=== PATIENT | male | born 1955 | race American Indian/Alaskan Native ===

== ENCOUNTER 2017-06-20 11:27 | Outpatient (CLI) | payer BC ==
[2017-06-20 11:44] LABS: Hematocrit 49.7 % (35.5-45.6); Hemoglobin 16.7 gm/dl (11.8-15.2); Mean Corpuscular HGB Conc 34 % (32-34); Mean Corpuscular Hemoglobin 29 pg (28-32); Mean Corpuscular Volume 88 fl (84-94); Platelet Count 172 K/mm3 (140-440); Red Blood Count 5.68 M/mm3 (3.65-5.03); Red Cell Distribution Width 14.7 % (13.2-15.2)
[2017-06-20 11:59] LABS: INR 0.91 (0.87-1.13); Partial Thromboplastin Time 31.7 Sec. (24.2-36.6)
[2017-06-20 12:11] LABS: Alanine Aminotransferase 16 units/L (7-56); Albumin 3.8 g/dL (3.9-5); BUN/Creatinine Ratio 13; Blood Urea Nitrogen 12 mg/dL (9-20); Calcium 9.1 mg/dL (8.4-10.2); Hemolysis Index 14
--- NOTE | 2017-06-20 12:54 | XRay Report ---
CHEST 2 VIEWS INDICATION: Cough. COMPARISON: 08/29/2014 FINDINGS: PA and lateral chest radiographs again demonstrate normal cardiomediastinal silhouette and bones. Clear, hyperexpanded lungs. CONCLUSION: Possible COPD without acute chest process. Thank you for the opportunity to participate in this patient's care.
== END 2017-06-20 11:28 | disposition home or self-care (01) ==
LOC: CARD 11:27
PROVIDERS: ATTEND Internal Medicine
DX: R07.9 Chest pain, unspecified (principal); R53.83 Other fatigue; R79.1 Abnormal coagulation profile
CPT/HCPCS: 36415; 71046; 80053; 85027; 85610; 85730; 93005; 93010

== ENCOUNTER 2017-11-11 03:54 | Emergency (ER) | payer SELFPAY ==
[2017-11-11 04:01] VITALS: BP 169/79
[2017-11-11] MEDS ORDERED: DELTASONE PO ONE (04:53)
[2017-11-11] MEDS ORDERED: PROVENTIL IH ONE (04:53)
[2017-11-11] MEDS ORDERED: ZITHROMAX PO ONE (04:54)
[2017-11-11] MEDS ORDERED: TYLENOL #3 PO ONE (04:54)
--- NOTE | 2017-11-11 05:13 | XRay Report ---
FINAL REPORT EXAM: XR CHEST ROUTINE 2V HISTORY: cough and congestion TECHNIQUE: PA and lateral views of the chest were submitted. FINDINGS: The lungs are hyperinflated. The heart size and vascularity appear normal. There are increased markings in both lung bases. Mild infiltrates cannot be excluded. Pleural fluid is not seen. The skeletal structures reveal mild disc degeneration in the dorsal spine. IMPRESSION: COPD. Increased markings in both lung bases. Mild pneumonic infiltrates cannot be excluded. No evidence of congestion.
--- NOTE | 2017-11-11 05:14 | Emergency Department Report ---
Upper Respiratory HPI - HPI Chief Complaint: Upper Respiratory Infection Stated Complaint: COLD/BODY ACHE Time Seen by Provider: 11/11/17 04:52 Duration: 5 Days URI Symptoms: Rhinorrhea: Yes, Sore Throat: No, Ear Pain: No, Cough: Yes, Shortness of Breath: Yes, Unable to Take Fluids: No, Urine Output Abnormal: No, Listless Behavior: No Other History: Patient is 62-year-old -[place] male with a history of asthma and bronchitis stays out of medications presents with cough and wheeze for the past 5 days patient denies fever no sore throat or ear pain no nausea vomiting or chest pain - Home Meds and Allergies Home Medications: Previous Rx's Medication Instructions Recorded Last Taken Type HYDROcodone/APAP 10-325 [[place] 1 each PO Q8HR PRN #20 tablet 08/29/14 Unknown Rx 10/325] Ondansetron [Zofran Odt] 8 mg PO TID PRN #10 tab.rapdis 08/29/14 Unknown Rx Acetaminophen/Codeine [Tylenol #3] 1 tab PO Q6H PRN #20 tab 06/14/15 Unknown Rx Sulfamethoxazole/Trimethoprim 1 each PO BID #20 tablet 06/14/15 Unknown Rx [Bactrim DS TAB] ALBUTEROL Inhaler(NF) [VENTOLIN 1 puff IH QID PRN #1 inha 11/11/17 Unknown Rx Inhaler(NF)] ALBUTEROL NEB's [Proventil 0.083% 2.5 mg IH QID PRN #25 vial 11/11/17 Unknown Rx NEBS] Acetaminophen [Tylenol] 975 mg PO QID PRN #60 capsule 11/11/17 Unknown Rx Azithromycin 250 mg PO DAILY #4 tablet 11/11/17 Unknown Rx Codeine Phosphate/Guaifenesin 5 ml PO TID PRN #120 ml 11/11/17 Unknown Rx [Guaifenesin-Codeine Syrup] Nebulizer Accessories [Sootheneb 1 each MC PRN PRN #1 each 11/11/17 Unknown Rx [id number] Adult Mask] Nebulizer [Aeroneb Go Nebulizer] 1 each MC PRN PRN #1 each 11/11/17 Unknown Rx predniSONE [Deltasone] 40 mg PO QDAY 5 Days #10 tab 11/11/17 Unknown Rx Allergies/Adverse Reactions: Allergies Allergy/AdvReac Type Severity Reaction Status Date / Time No Known Allergies Allergy Unverified 08/28/14 23:10 ED Review of Systems ROS: Stated complaint: COLD/BODY ACHE Other details as noted in HPI Constitutional: denies: chills, fever Eyes: denies: eye pain, eye discharge, vision change ENT: as per HPI, congestion Respiratory: cough, shortness of breath, wheezing Cardiovascular: denies: chest pain, palpitations Endocrine: no symptoms reported Gastrointestinal: denies: abdominal pain, nausea, diarrhea Genitourinary: denies: urgency, dysuria Musculoskeletal: denies: back pain, joint swelling, arthralgia Skin: denies: rash, lesions Neurological: denies: headache, weakness, paresthesias Psychiatric: denies: anxiety, depression Hematological/Lymphatic: denies: easy bleeding, easy bruising ED Past Medical Hx - Past Medical History Additional medical history: Hemorrhoids - Surgical History Additional Surgical History: R wrist surgery - Social History Smoking Status: Current Every Day Smoker Substance Use Type: None - Medications Home Medications: Home Medications Medication Instructions Recorded Confirmed Last Taken Type HYDROcodone/APAP 10-325 [[place] 1 each PO Q8HR PRN #20 tablet 08/29/14 Unknown Rx 10/325] Ondansetron [Zofran Odt] 8 mg PO TID PRN #10 tab.rapdis 08/29/14 Unknown Rx Acetaminophen/Codeine [Tylenol #3] 1 tab PO Q6H PRN #20 tab 06/14/15 Unknown Rx Sulfamethoxazole/Trimethoprim 1 each PO BID #20 tablet 06/14/15 Unknown Rx [Bactrim DS TAB] ALBUTEROL Inhaler(NF) [VENTOLIN 1 puff IH QID PRN #1 inha 11/11/17 Unknown Rx Inhaler(NF)] ALBUTEROL NEB's [Proventil 0.083% 2.5 mg IH QID PRN #25 vial 11/11/17 Unknown Rx NEBS] Acetaminophen [Tylenol] 975 mg PO QID PRN #60 capsule 11/11/17 Unknown Rx Azithromycin 250 mg PO DAILY #4 tablet 11/11/17 Unknown Rx Codeine Phosphate/Guaifenesin 5 ml PO TID PRN #120 ml 11/11/17 Unknown Rx [Guaifenesin-Codeine Syrup] Nebulizer Accessories [Sootheneb 1 each MC PRN PRN #1 each 11/11/17 Unknown Rx [id number] Adult Mask] Nebulizer [Aeroneb Go Nebulizer] 1 each MC PRN PRN #1 each 11/11/17 Unknown Rx predniSONE [Deltasone] 40 mg PO QDAY 5 Days #10 tab 11/11/17 Unknown Rx ED Bronchiolitis Physical Exam - Exam General: Vital signs noted. No distress. Alert and acting appropriately. HEENT: Yes Pharyngeal Erythema, Yes Rhinorrhea, No Conjuctival Injection, No Dry Mucous Membranes Ear: Neither TM Bulge, Neither TM Erythema, Neither EAC Discharge Neck: No Adenopathy, No Rigidity Lungs: Yes Good Air Exchange, Yes Wheezes, Yes Cough, No Clear Lung Sounds, No Stridor, No Nasal Flaring, No Retractions, No Use of Accessory Muscles Heart: Yes Regular, No Murmur Abdomen: Yes Normal Bowel Sounds, No Tenderness, No Peritoneal Signs Skin: No Rash, No Eczema Neurologic: Alert and oriented, no deficits. Musculoskeletal: Unremarkable. ED Bronchiolitis Tests - Testing Testing: CXR: Normal/Negative (no infiltrates no opacities) Treatments - Treaments Treatment: Improved Albuterol (prednisone ) ED Physical Exam - General Limitations: No Limitations General appearance: alert, in no apparent distress - Head Head exam: Present: atraumatic, normocephalic - Eye Eye exam: Present: normal appearance - ENT ENT exam: Present: normal orophraynx, mucous membranes moist, TM's normal bilaterally, normal external ear exam - Expanded ENT Exam Expanded Throat exam: Positive: tonsillar erythema, tonsillomegaly. Negative: tonsillar exudate, R peritonsillar mass, L peritonsillar mass - Neck Neck exam: Present: normal inspection, full ROM. Absent: tenderness, meningismus, lymphadenopathy, thyromegaly - Respiratory Respiratory exam: Present: wheezes. Absent: respiratory distress, stridor, chest wall tenderness - Cardiovascular Cardiovascular Exam: Present: regular rate, normal rhythm, normal heart sounds. Absent: systolic murmur, diastolic murmur, rubs, gallop - GI/Abdominal GI/Abdominal exam: Present: soft, normal bowel sounds - Rectal Rectal exam: Present: deferred - Extremities Exam Extremities exam: Present: normal inspection - Back Exam Back exam: Present: normal inspection - Neurological Exam Neurological exam: Present: alert, oriented X3 - Psychiatric Psychiatric exam: Present: normal affect - Skin Skin exam: Present: warm, dry, intact, normal color. Absent: rash ED Course Vital Signs 11/11/17 03:59 Temperature 98.8 F Pulse Rate 76 Respiratory 18 Rate Blood Pressure 169/79 O2 Sat by Pulse 97 Oximetry ED Medical Decision Making - Radiology Data Radiology results: report reviewed, image reviewed Chest x-ray normal no opacities no infiltrates - Medical Decision Making Physical bronchitis versus asthma exacerbation breathing improved with prednisone with urology within ED patient given a Zithromax and Tylenol 3 for control of cough as he cannot get antibiotics until tomorrow refilled albuterol nebs and prednisone 5 days patient will follow was also [facility] or return to ED should symptoms worsen patient verbalizes agreement and understanding same will be DC'd in stable condition , patient is now ambulatory in ED without shortness of breath Critical care attestation.: If time is entered above; I have spent that time in minutes in the direct care of this critically ill patient, excluding procedure time. ED Disposition Clinical Impression: Bronchitis Disposition: DC-01 TO HOME OR SELFCARE Is pt being admited?: No Does the pt Need Aspirin: No Condition: Good Instructions: Chronic Bronchitis (ED) Prescriptions: Acetaminophen [Tylenol] 975 mg PO QID PRN #60 capsule PRN Reason: pain fever ALBUTEROL Inhaler(NF) [VENTOLIN Inhaler(NF)] 1 puff IH QID PRN #1 inha PRN Reason: wheezing sob ALBUTEROL NEB's [Proventil 0.083% NEBS] 2.5 mg IH QID PRN #25 vial PRN Reason: sob wheezing Azithromycin 250 mg PO DAILY #4 tablet Codeine Phosphate/Guaifenesin [Guaifenesin-Codeine Syrup] 5 ml PO TID PRN #120 ml PRN Reason: cough Nebulizer [Aeroneb Go Nebulizer] 1 each MC PRN PRN #1 each PRN Reason: sob wheezing Nebulizer Accessories [Sootheneb [id number] Adult Mask] 1 each MC PRN PRN #1 each PRN Reason: sob wheezing predniSONE [Deltasone] 40 mg PO QDAY 5 Days #10 tab Referrals: [facility] [Outside] - 3-5 Days Forms: Work/School Release Form(ED) Time of Disposition: :19
== END 2017-11-11 06:30 | disposition home or self-care (01) ==
LOC: ED 03:54
DX: J40 Bronchitis, not specified as acute or chronic (principal); F17.200 Nicotine dependence, unspecified, uncomplicated
CPT/HCPCS: 71046; 94640; 99283; J7512

== ENCOUNTER 2018-06-02 09:58 | Emergency (ER) | payer SELFPAY ==
--- NOTE | 2018-06-02 12:36 | Emergency Department Report ---
ED General Adult HPI - General Chief complaint: Rectal Pain Stated complaint: HEMORRHOID/PAIN Time Seen by Provider: 06/02/18 12:28 Source: patient Mode of arrival: Ambulatory Limitations: No Limitations - History of Present Illness Initial comments: This is a 62-year-old male presents with rectal pain since yesterday. Patient reports a history of thrombosed hemorrhoids and had them excised in the emergency room before. Patient states he attempt to work but could not tolerate sitting or movement. He is taking NSAIDs for pain. He denies signs of abdominal pain, diarrhea, nausea or vomiting. Onset/Timin -: days(s) Location: buttocks (rectal pain) Radiation: non-radiation Severity scale (0 -10): 9 Quality: stabbing, constant Consistency: constant Improves with: none Worsens with: other (sitting and walking) Associated Symptoms: denies other symptoms Treatments Prior to Arrival: NSAID - Related Data Previous Rx's Medication Instructions Recorded Last Taken Type HYDROcodone/APAP 10-325 [[place] 1 each PO Q8HR PRN #20 tablet 08/29/14 Unknown Rx 10/325] Ondansetron [Zofran Odt] 8 mg PO TID PRN #10 tab.rapdis 08/29/14 Unknown Rx Acetaminophen/Codeine [Tylenol #3] 1 tab PO Q6H PRN #20 tab 06/14/15 Unknown Rx Sulfamethoxazole/Trimethoprim 1 each PO BID #20 tablet 06/14/15 Unknown Rx [Bactrim DS TAB] ALBUTEROL Inhaler(NF) [VENTOLIN 1 puff IH QID PRN #1 inha 11/11/17 Unknown Rx Inhaler(NF)] ALBUTEROL NEB's [Proventil 0.083% 2.5 mg IH QID PRN #25 vial 11/11/17 Unknown Rx NEBS] Acetaminophen [Tylenol] 975 mg PO QID PRN #60 capsule 11/11/17 Unknown Rx Azithromycin 250 mg PO DAILY #4 tablet 11/11/17 Unknown Rx Codeine Phosphate/Guaifenesin 5 ml PO TID PRN #120 ml 11/11/17 Unknown Rx [Guaifenesin-Codeine Syrup] Nebulizer Accessories [Sootheneb 1 each MC PRN PRN #1 each 11/11/17 Unknown Rx [id number] Adult Mask] Nebulizer [Aeroneb Go Nebulizer] 1 each MC PRN PRN #1 each 11/11/17 Unknown Rx predniSONE [Deltasone] 40 mg PO QDAY 5 Days #10 tab 11/11/17 Unknown Rx Acetaminophen/Codeine [Tylenol 1 tab PO Q4HR PRN #12 tablet 06/02/18 Unknown Rx /Codeine # 3 tab] Hydrocort/Pramoxine [Proctofoam-Hc] 10 gm SD Q2H PRN #1 can 06/02/18 Unknown Rx Hydrocortisone [Anusol-Hc] 30 gm RC BID #1 cream..g. 06/02/18 Unknown Rx Allergies Allergy/AdvReac Type Severity Reaction Status Date / Time No Known Allergies Allergy Unverified 08/28/14 23:10 ED Review of Systems ROS: Stated complaint: HEMORRHOID/PAIN Other details as noted in HPI Constitutional: denies: chills, fever Respiratory: denies: cough, shortness of breath, wheezing Cardiovascular: denies: chest pain, palpitations Gastrointestinal: other (rectal pain). denies: abdominal pain, nausea, diarrhea Genitourinary: denies: urgency, dysuria Skin: denies: rash, lesions Neurological: denies: headache, weakness, paresthesias Psychiatric: denies: anxiety, depression ED Past Medical Hx - Past Medical History Previous Medical History?: Yes Additional medical history: Hemorrhoids - Surgical History Past Surgical History?: Yes Additional Surgical History: R wrist surgery - Social History Smoking Status: Current Every Day Smoker Substance Use Type: None - Medications Home Medications: Home Medications Medication Instructions Recorded Confirmed Last Taken Type HYDROcodone/APAP 10-325 [[place] 1 each PO Q8HR PRN #20 tablet 08/29/14 Unknown Rx 10/325] Ondansetron [Zofran Odt] 8 mg PO TID PRN #10 tab.rapdis 08/29/14 Unknown Rx Acetaminophen/Codeine [Tylenol #3] 1 tab PO Q6H PRN #20 tab 06/14/15 Unknown Rx Sulfamethoxazole/Trimethoprim 1 each PO BID #20 tablet 06/14/15 Unknown Rx [Bactrim DS TAB] ALBUTEROL Inhaler(NF) [VENTOLIN 1 puff IH QID PRN #1 inha 11/11/17 Unknown Rx Inhaler(NF)] ALBUTEROL NEB's [Proventil 0.083% 2.5 mg IH QID PRN #25 vial 11/11/17 Unknown Rx NEBS] Acetaminophen [Tylenol] 975 mg PO QID PRN #60 capsule 11/11/17 Unknown Rx Azithromycin 250 mg PO DAILY #4 tablet 11/11/17 Unknown Rx Codeine Phosphate/Guaifenesin 5 ml PO TID PRN #120 ml 11/11/17 Unknown Rx [Guaifenesin-Codeine Syrup] Nebulizer Accessories [Sootheneb 1 each MC PRN PRN #1 each 11/11/17 Unknown Rx [id number] Adult Mask] Nebulizer [Aeroneb Go Nebulizer] 1 each MC PRN PRN #1 each 11/11/17 Unknown Rx predniSONE [Deltasone] 40 mg PO QDAY 5 Days #10 tab 11/11/17 Unknown Rx Acetaminophen/Codeine [Tylenol 1 tab PO Q4HR PRN #12 tablet 06/02/18 Unknown Rx /Codeine # 3 tab] Hydrocort/Pramoxine [Proctofoam-Hc] 10 gm SD Q2H PRN #1 can 06/02/18 Unknown Rx Hydrocortisone [Anusol-Hc] 30 gm RC BID #1 cream..g. 06/02/18 Unknown Rx ED Physical Exam - General Limitations: No Limitations General appearance: alert, in no apparent distress - Respiratory Respiratory exam: Present: normal lung sounds bilaterally. Absent: respiratory distress - Cardiovascular Cardiovascular Exam: Present: regular rate, normal rhythm. Absent: systolic murmur, diastolic murmur, rubs, gallop - GI/Abdominal GI/Abdominal exam: Present: soft, normal bowel sounds. Absent: distended, tenderness, guarding, rebound, rigid - Rectal Rectal exam: Present: hemorrhoids (5 cm external beefy red hemorrhoid, tender on palpation, no signs of thrombosis) - Neurological Exam Neurological exam: Present: alert, oriented X3 - Psychiatric Psychiatric exam: Present: normal affect, normal mood - Skin Skin exam: Present: warm, dry, intact, normal color. Absent: rash ED Course Vital Signs 06/02/18 10:20 Temperature 97.6 F Pulse Rate 65 Respiratory 18 Rate Blood Pressure 155/79 O2 Sat by Pulse 99 Oximetry ED Medical Decision Making - Medical Decision Making Patient was examined by me. Vitals are normal and patient is in no acute distress. Focal exam there is a beefy. Half a centimeter beefy red Hemorrhoid. Patient informed of results. Start Proctofoam and hydrocortisone suppository. Referral to general surgery for further evaluation. Patient given information for hemorrhoidectomy and instructed to follow-up which surgeon. Plan discussed with patient to discharge home and treat outpatient. He agrees with ER plan. Patient discharged home in stable condition. Follow up with PCP in 2-3 days. Critical care attestation.: If time is entered above; I have spent that time in minutes in the direct care of this critically ill patient, excluding procedure time. ED Disposition Clinical Impression: External hemorrhoids Disposition: TO HOME OR SELFCARE Is pt being admited?: No Does the pt Need Aspirin: No Condition: Stable Instructions: Hemorrhoids (ED), Hemorrhoidectomy (ED) Additional Instructions: Follow-up with general surgeon Dr. Fritz from referrals below. Prescriptions: Hydrocortisone [Anusol-Hc] 30 gm RC BID #1 cream..g. Hydrocort/Pramoxine [Proctofoam-Hc] 10 gm SD Q2H PRN #1 can PRN Reason: Pain , Severe (7-10) Acetaminophen/Codeine [Tylenol /Codeine # 3 tab] 1 tab PO Q4HR PRN #12 tablet PRN Reason: Pain Referrals: TONEY FRITZ DO [Staff Physician] - 3-5 Days DEEPALI ZIMMERMAN MD [Staff Physician] - 3-5 Days Forms: Work/School Release Form(ED) Time of Disposition: 12:57
== END 2018-06-02 13:11 | disposition home or self-care (01) ==
LOC: ED 09:58
CPT/HCPCS: 99282